=== PATIENT | female | born 1995 | race Two or more races ===

== ENCOUNTER 2017-10-26 12:45 | Outpatient (CLI) | payer OTHER ==
[~2017-10-26] VITALS: Ht 162.6 cm; Wt 61.2 kg
== END 2017-10-26 17:21 | disposition home or self-care (01) ==
LOC: OFIC 805 12:45
DX: J32.8 Other chronic sinusitis (principal); R09.81 Nasal congestion; J34.3 Hypertrophy of nasal turbinates

== ENCOUNTER 2018-05-12 16:28 | Emergency (ER) | payer OTHER ==
[~2018-05-12] VITALS: Ht 162.6 cm; Wt 61.2 kg
[2018-05-12] MEDS ORDERED: PEPCID AC20 MG PO (22:33)
[2018-05-12] MEDS ORDERED: INTESTINEX680 M1 PO (22:33)
[2018-05-12] MEDS ORDERED: ZOFRAN ODT4 MG SL (22:33)
== END 2018-05-12 22:48 | disposition home or self-care (01) ==
LOC: ER 16:28
DX: K52.9 Noninfective gastroenteritis and colitis, unspecified (principal); E86.0 Dehydration

== ENCOUNTER 2020-06-21 15:29 | Outpatient (CLI) | payer OTHER ==
[~2020-06-21 15:29] MED LIST: INTESTINEX680 M1 PO; PEPCID AC20 MG PO; ZOFRAN ODT4 MG SL
== END 2020-06-21 15:34 | disposition home or self-care (01) ==
LOC: LAB 15:29
PROVIDERS: ATTEND Internal Medicine Pulmonary Disease
DX: U07.1 COVID-19 (principal); R05 Cough; R06.02 Shortness of breath; R50.9 Fever, unspecified

== ENCOUNTER 2023-10-15 13:18 | Emergency (ER) | payer OTHER ==
[~2023-10-15] VITALS: Ht 162.6 cm; Wt 61.2 kg
[2023-10-15 14:35] LABS: HEMATOCRIT 41.4 % (36.0-45.00); HEMOGLOBIN 14.2 g/dL (12.0-15.00); MEAN CELL VOLUME 95.7 fL (80.00-100.00); MEAN CORPUSCULAR HEMOGLOBIN 32.7 pg (27.00-32.0); MEAN CORPUSCULAR HGB CONC 34.2 g/dl (32.0-36.0); PLATELET COUNT 257 K/uL (150-450); RED BLOOD COUNT 4.33 M/uL (4.00-6.00); RED CELL DISTRIBUTION WIDTH 12.4 % (11.5-14.5)
== END 2023-10-15 17:13 | disposition home or self-care (01) ==
LOC: ER 13:19
PROVIDERS: General Practice
DX: R10.9 Unspecified abdominal pain (principal); N83.209 Unspecified ovarian cyst, unspecified side